=== PATIENT | male | born 1965 | race Asian ===

== ENCOUNTER 2023-04-26 17:43 | Emergency (ER) | payer MEDICARE ==
[~2023-04-26] VITALS: Ht 170.2 cm; Wt 75.0 kg
[2023-04-26 17:53] VITALS: BP 137/87; PULSE 104; RESP 16; TEMP 98.8; O2SAT 99
[2023-04-26 18:44] LABS: CLARITY URINE CLEAR (CLEAR); COLOR URINE YELLOW (YELLOW); GLUCOSE URINE NEGATIVE (NEGATIVE); KETONES URINE NEGATIVE (NEGATIVE); LEUKOCYTE ESTERASE URINE NEGATIVE (NEGATIVE); NITRITE URINE NEGATIVE (NEGATIVE); OCCULT BLOOD URINE NEGATIVE (NEGATIVE); PH URINE 7.5 (4.5-8.0); PROTEIN URINE NEGATIVE (NEGATIVE); SPECIFIC GRAVITY URINE 1.005 (1.005-1.030); UROBILINOGEN URINE 0.2 E.U./dL (0.2-1.0)
[2023-04-26] MEDS ORDERED: LIDOCAINE HCL 2% JELLY 5ML TOP ONE (18:45)
[2023-04-26] MEDS ORDERED: TAMS-11 MT (20:28)
== END 2023-04-26 20:28 | disposition home or self-care (01) ==
LOC: ER 17:43
DX: R33.9 Retention of urine, unspecified (principal); F20.9 Schizophrenia, unspecified
CPT/HCPCS: 81003; 99283